=== PATIENT | male | born 1975 | race Caucasian/White ===

== ENCOUNTER 2024-03-21 15:05 | Outpatient (CLI) | payer BC ==
[2024-03-21 17:14] LABS: #Basophils 0.06 10x3/uL (0.0-0.2); #Eosinphils 0.27 10x3/uL (0.0-0.5); #Monocytes 0.59 10x3/uL (0.0-1.1); #Neutrophils 5.43 10x3/uL (1.5-8.4); %Basophils 0.7 % (0.0-2.0); %Eosinophils 3.2 % (0.0-6.0); %Lymphocytes 24.6 % (18.0-47.0); Hematocrit 42.2 % (38.8-50.0); Mean Corpuscular HGB CONC 35.5 g/dL (32.0-36.0); Platelet Count 296 10x3/uL (150-450); RBC Distribution Width 11.6 % (11.5-14.5); Red Blood Cell (RBC) Count 4.54 10x6/uL (4.32-5.72); White Blood Cell (WBC) Count 8.5 10x3/uL (3.5-10.5)
[2024-03-21 17:24] LABS: Anion Gap 11 mmol/L (10-20); BUN (Urea Nitrogen) 8 mg/dL (8.9-20.6); Calc. Creatinine Clearance 0 mL/min (70-130); Calcium 9.3 mg/dL (7.8-10.44); Carbon Dioxide 26 mmol/L (22-29); Chloride 103 mmol/L (98-107); Estimated GFR 104; Glucose 90 mg/dL (70-105); Potassium 4.3 mmol/L (3.5-5.1); Sodium 136 mmol/L (136-145)
== END 2024-03-21 15:06 | disposition home or self-care (01) ==
LOC: LABBT 15:05
PROVIDERS: ATTEND Surgery
DX: Z01.818 Encounter for other preprocedural examination (principal); K43.9 Ventral hernia without obstruction or gangrene
CPT/HCPCS: 80048; 85025; 93005; 93010

== ENCOUNTER 2024-03-27 05:58 | Day surgery (SDC) | payer BC ==
[2024-03-21 15:23] VITALS: BMI 28.7
[2024-03-27] MEDS ORDERED: EPINEPHrine 1 MG/ML VIAL ONE (06:40)
[2024-03-27] MEDS ORDERED: Bupivacaine 0.25% HCL 30 ML VIAL ONE (06:40)
[2024-03-27] MEDS ORDERED: PROPOFOL 40 ML ONE (06:57)
[2024-03-27] MEDS ORDERED: fentaNYL PF 100 MCG/2 ML SYRINGE ONE ×3 (06:58→09:13)
[2024-03-27] MEDS ORDERED: Rocuronium Bromide 10 MG/ML (10ML VIAL) ONE ×2 (06:59)
[2024-03-27] MEDS ORDERED: Lidocaine 1% PF 5 ML VIAL ONE (06:59)
[2024-03-27] MEDS ORDERED: Sodium Chloride 0.9% 100 ML ONE (07:21)
[2024-03-27] MEDS ORDERED: CEFAZOLIN 2 GM VIAL ONE (07:21)
[2024-03-27] MEDS ORDERED: Midazolam HCl 2 mg/2 ml Vial ONE (07:21)
[2024-03-27] MEDS ORDERED: Albuterol HFA (OR) 200 PUFF INH ONE (07:47)
[2024-03-27] MEDS ORDERED: Dexamethasone 20 MG/5 ML VIAL ONE (07:49)
[2024-03-27] MEDS ORDERED: ePHEDrine Sulfate 50 MG/10 ML VIAL ONE (07:52)
[2024-03-27] MEDS ORDERED: Dexmedetomidine 200 MCG/2 ML VIAL ONE (08:05)
[2024-03-27] MEDS ORDERED: Ketorolac Tromethamine 30 MG (1 mL) VIAL ONE (08:29)
[2024-03-27] MEDS ORDERED: Ondansetron PF 4 MG/2 ML Vial ONE (08:29)
[2024-03-27] MEDS ORDERED: SUGAMMADEX SODIUM 200 MG/2 ML VIAL ONE (08:33)
[2024-03-27] MEDS ORDERED: PROPOFOL 20 ML ONE (08:35)
[2024-03-27] MEDS ORDERED: HYDROmorphone 0.5 MG/0.5 ML SYRINGE ONE (09:47)
[2024-03-27] MEDS ORDERED: HYDROcodone/Acetaminophen 5/325 mg Tablet ONE (10:15)
[2024-03-27] MEDS ORDERED: Morphine 2 MG/ML VIAL ONE (10:16)
== END 2024-03-27 11:55 | disposition home or self-care (01) ==
LOC: SDC 05:58
PROVIDERS: ATTEND Surgery
PROC: 0WQF4ZZ Repair Abdominal Wall, Percutaneous Endoscopic Approach (ICD-10-PCS; principal; 2024-03-27)
DX: K43.9 Ventral hernia without obstruction or gangrene (principal); I10 Essential (primary) hypertension; F17.210 Nicotine dependence, cigarettes, uncomplicated; Z79.899 Other long term (current) drug therapy; Z88.8 Allergy status to other drugs, medicaments and biological substances
CPT/HCPCS: C1781; J0171; J0665; J1100; J1170; J1885; J2250; J2272; J2405; J2704; J3490